=== PATIENT | female | born 1990 | race Hispanic/Latino ===

== ENCOUNTER 2017-12-26 19:00 | Emergency (ER) | payer SELFPAY ==
[2017-12-26 19:51] LABS: #Basophils 0.1 thou/uL (0.0-0.2); #Eosinphils 0.2 thou/uL (0.0-0.7); #Lymphocytes 2.2 thou/uL (1.20-3.40); #Monocytes 0.4 thou/uL (0.11-0.59); #Neutrophils 7.1 thou/uL (1.40-6.50); %Basophils 0.6 % (0.0-1.0); %Eosinophils 1.7 % (0.0-10.0); %Lymphocytes 22.5 % (21.0-51.0); %Monocytes 4.3 % (0.0-10.0); %Neutrophils 70.9 % (42.0-75.0); Hemoglobin 11.3 g/dL (12.0-16.0); Mean Corpuscular HGB CONC 32.5 g/dL (32.0-36.0); Mean Corpuscular Hemoglobin 26.9 pg (27.0-31.0); Mean Corpuscular Volume 82.6 fl (81.0-99.0); Mean Platelet Volume 9.7 fL (7.4-10.4); Platelet Count 187 thou/uL (130-400); RBC Distribution Width 12.6 % (11.5-14.5); Red Blood Cell (RBC) Count 4.19 mill/uL (4.20-5.40); White Blood Cell (WBC) Count 9.9 thou/uL (4.8-10.8)
[2017-12-26 20:19] LABS: Bilirubin Negative (Negative); Blood, Urine Negative (Negative); Clarity Slightly Cloudy (Clear); Glucose, Urine (Dipstick) Negative (Negative); Leukocyte Trace (Negative); Nitrite Negative (Negative); Protein, Urine (Dipstick) Trace mg/dL (Neg-Trace); Specific Gravity, Urine 1.015 (1.005-1.030); pH, Urine 8.5 (5.0-9.0)
[2017-12-26 20:21] LABS: Pregnancy Test - Urine (BHCG) Negative (Negative)
[2017-12-26 20:22] LABS: Pregu Control Background? CLEAR/WHITE (CLR/WHITE); Pregu Control Bar Appear? YES (CONTROL BAR); Specific Gravity 1.015 (1.002-1.036)
[2017-12-26 20:24] LABS: Bacteria/HPF 2+ HPF (None Seen); RBC/HPF 0-3 HPF (0-3); Squamous Epithelial 0-3 HPF (0-3)
== END 2017-12-26 20:32 | disposition home or self-care (01) ==
LOC: SCSER 19:00
DX: B34.9 Viral infection, unspecified (principal); R55 Syncope and collapse
CPT/HCPCS: 36415; 81003; 81015; 81025; 85025; 87804; 99284

== ENCOUNTER 2022-07-20 10:25 | Outpatient (CLI) | payer OTHER | END 2022-07-20 10:26 | disposition home or self-care (01) | LOC: DTY/OP 10:25 | PROVIDERS: ATTEND Specialist | DX: E66.01 Morbid (severe) obesity due to excess calories (principal) | CPT/HCPCS: 97802 ==

== ENCOUNTER 2022-08-30 09:50 | Outpatient (CLI) | payer OTHER | END 2022-08-30 09:51 | disposition home or self-care (01) | LOC: DTY/OP 09:50 | PROVIDERS: ATTEND Specialist | DX: E66.01 Morbid (severe) obesity due to excess calories (principal) | CPT/HCPCS: 97802 ==

== ENCOUNTER 2022-09-28 09:17 | Outpatient (CLI) | payer OTHER | END 2022-09-28 09:18 | disposition home or self-care (01) | LOC: DTY/OP 09:17 | PROVIDERS: ATTEND Specialist | DX: E66.01 Morbid (severe) obesity due to excess calories (principal) | CPT/HCPCS: 97802 ==

== ENCOUNTER 2022-11-23 10:04 | Outpatient (CLI) | payer OTHER | END 2022-11-23 10:05 | disposition home or self-care (01) | LOC: DTY/OP 10:04 | PROVIDERS: ATTEND Specialist | DX: E66.01 Morbid (severe) obesity due to excess calories (principal) | CPT/HCPCS: 97802 ==

== ENCOUNTER 2022-12-21 09:48 | Outpatient (CLI) | payer OTHER | END 2022-12-21 09:49 | disposition home or self-care (01) | LOC: DTY/OP 09:48 | PROVIDERS: ATTEND Specialist | DX: E66.01 Morbid (severe) obesity due to excess calories (principal) | CPT/HCPCS: 97802 ==

== ENCOUNTER 2023-02-08 10:22 | Outpatient (CLI) | payer OTHER | END 2023-02-08 10:23 | disposition home or self-care (01) | LOC: DTY/OP 10:22 | PROVIDERS: ATTEND Specialist | DX: E66.01 Morbid (severe) obesity due to excess calories (principal) | CPT/HCPCS: 97802 ==

== ENCOUNTER 2023-02-21 09:15 | Inpatient (IN) | payer OTHER ==
[2023-02-28] MEDS ORDERED: Acetaminophen 500 MG TAB ONE (09:13)
[2023-02-28] MEDS ORDERED: Ketorolac Tromethamine 30 MG/ML VIAL ONE (09:13)
[2023-02-28] MEDS ORDERED: Scopolamine 1.5 mg/72 hour Patch ONE (09:13)
[2023-02-28] MEDS ORDERED: Heparin 5,000 UNITS/ML VIAL ONE (09:34)
[2023-02-28] MEDS ORDERED: Fentanyl 250 MCG/5 ML VIAL ONE (10:39)
[2023-02-28] MEDS ORDERED: Midazolam HCl 2 mg/2 ml Vial ONE (10:39)
[2023-02-28] MEDS ORDERED: Bupivacaine/Epinephrine 0.25% 30 ML VIAL ONE (10:45)
[2023-02-28] MEDS ORDERED: Sodium Chloride 0.9% 100 ML ONE (10:56)
[2023-02-28] MEDS ORDERED: CEFAZOLIN 2 GM VIAL ONE (10:56)
[2023-02-28] MEDS ORDERED: Dexamethasone 20 MG/5 ML VIAL ONE (11:02)
[2023-02-28] MEDS ORDERED: PROPOFOL 200 MG/20 ML VIAL ONE (11:02)
[2023-02-28] MEDS ORDERED: Rocuronium Bromide 10 MG/ML (10ML VIAL) ONE (11:02)
[2023-02-28] MEDS ORDERED: Lidocaine 1% PF 5 ML VIAL ONE (11:02)
[2023-02-28] MEDS ORDERED: Ondansetron PF 4 MG/2 ML Vial ONE ×2 (11:02→13:29)
[2023-02-28] MEDS ORDERED: HYDROmorphone 2 MG/ML VIAL SLOW IVP PRN (11:35)
[2023-02-28] MEDS ORDERED: Ondansetron HCl/PF 4 MG/2 ML Vial IVP PRN (11:35)
[2023-02-28] MEDS ORDERED: Promethazine HCl 25 MG/ML VIAL IM PRN ×2 (11:35→14:49)
[2023-02-28] MEDS ORDERED: HYDROmorphone 0.5 MG/0.5 ML SYRINGE ONE (11:49)
[2023-02-28] MEDS ORDERED: Promethazine HCl 25 MG/ML VIAL ONE (13:35)
[2023-02-28] MEDS ORDERED: fentaNYL 50 mcg/mL 1 mL Vial ONE ×3 (13:58→14:49)
[2023-02-28] MEDS ORDERED: Morphine 4 MG/ML VIAL SLOW IVP PRN (14:49)
[2023-02-28] MEDS ORDERED: Dextrose 50% Abboject 50 ML SYRINGE SLOW IVP PRN (14:49)
[2023-02-28] MEDS ORDERED: hydrALAZINE 20 MG/ML VIAL SLOW IVP PRN (14:49)
[2023-02-28] MEDS ORDERED: Morphine 2 MG/ML VIAL SLOW IVP PRN (14:49)
[2023-02-28] MEDS ORDERED: Dextrose 5% in Water 1,000 ML IV PRN (14:49)
[2023-02-28] MEDS ORDERED: diphenhydrAMINE 50 MG/ML VIAL IVP PRN (14:49)
[2023-02-28] MEDS ORDERED: Ipratropium Bromide 2.5 ml Neb NEB PRN (14:58)
[2023-02-28 15:46] VITALS: BMI 39.7
[2023-02-28] MEDS: D5 1/2 NS w/20 mEq KCL 1,000 ML IV SCH ×2 (16:40→20:02)
[2023-02-28] MEDS: Ketorolac Tromethamine 30 MG/ML VIAL IVP SCH ×2 (17:00→23:28)
[2023-02-28] MEDS: Ondansetron PF 4 MG/2 ML Vial IVP PRN (21:56)
[2023-03-01] MEDS: D5 1/2 NS w/20 mEq KCL 1,000 ML IV SCH ×2 (04:49→16:01)
[2023-03-01] MEDS: Ketorolac Tromethamine 30 MG/ML VIAL IVP SCH ×2 (04:51→12:40)
[2023-03-01] MEDS: Hydrocodone-Acetamin 15 ML UDCUP PO PRN ×2 (04:51→16:15)
[2023-03-01] MEDS: Ondansetron PF 4 MG/2 ML Vial IVP PRN (04:51)
[2023-03-01 07:24] LABS: #Basophils 0.1 thou/uL (0.0-0.2); #Lymphocytes 1.2 thou/uL (1.20-3.40); #Monocytes 1.1 thou/uL (0.11-0.59); #Neutrophils 11.7 thou/uL (1.40-6.50); %Basophils 0.7 % (0.0-1.0); %Eosinophils 0.3 % (0.0-10.0); %Lymphocytes 8.4 % (21.0-51.0); %Monocytes 7.7 % (0.0-10.0); %Neutrophils 82.9 % (42.0-75.0); Hemoglobin 12.1 g/dL (12.0-16.0); Mean Corpuscular HGB CONC 32.9 g/dL (32.0-36.0); Mean Corpuscular Volume 81.9 fl (78.0-98.0); Mean Platelet Volume 10.2 fL (7.4-10.4); Platelet Count 211 10x3/uL (130-400); RBC Distribution Width 13.7 % (11.5-14.5); Red Blood Cell (RBC) Count 4.49 mill/uL (4.20-5.40); White Blood Cell (WBC) Count 14.1 10x3/uL (4.8-10.8)
[2023-03-01 07:49] LABS: Anion Gap 16 mmol/L (10-20); BUN (Urea Nitrogen) 6 mg/dL (7.0-18.7); Calc. Creatinine Clearance 222 mL/min (70-130); Calcium 8.9 mg/dL (7.8-10.44); Carbon Dioxide 20 mmol/L (22-29); Chloride 105 mmol/L (98-107); Estimated GFR 119; Glucose 114 mg/dL (70-105); Potassium 4.2 mmol/L (3.5-5.1); Sodium 137 mmol/L (136-145)
[2023-03-01] MEDS ORDERED: Pantoprazole 40 MG VIAL IVP SCH (09:00)
[2023-03-01 15:40] VITALS: BP 147/89; TEMP 97.2
== END 2023-03-01 16:35 | disposition home or self-care (01) | DRG 621 ==
LOC: SURG A 02-28 08:39
PROVIDERS: ADMIT Specialist; ATTEND Specialist
PROC: 0DB64Z3 Excision of Stomach, Percutaneous Endoscopic Approach, Vertical (ICD-10-PCS; principal; 2023-02-28)
DX: E66.01 Morbid (severe) obesity due to excess calories (principal); Z68.39 Body mass index [BMI] 39.0-39.9, adult; Z79.899 Other long term (current) drug therapy
CPT/HCPCS: 36415; 80048; 85025; 88307; 88342; A4649; C9113; J0360; J1100; J1170; J1644; J1650; J1885; J2250; J2272; J2405; J2550; J2704; J3010; J3480; J3490

== ENCOUNTER 2023-02-21 09:34 | Outpatient (CLI) | payer OTHER ==
[2023-02-21 12:49] LABS: #Eosinphils 0.1 10x3/uL (0.0-0.5); #Monocytes 0.3 10x3/uL (0.0-1.1); #Neutrophils 3.4 10x3/uL (1.5-8.4); %Basophils 0.7 % (0.0-2.0); %Eosinophils 2.2 % (0.0-6.0); %Lymphocytes 27.2 % (18.0-47.0); %Monocytes 5.8 % (0.0-10.0); %Neutrophils 64.1 % (40.0-75.0); Hemoglobin 11.1 g/dL (12.0-15.5); Mean Corpuscular HGB CONC 30.2 g/dL (32.0-36.0); Mean Corpuscular Hemoglobin 24.6 pg (27.0-33.0); Mean Corpuscular Volume 81.4 fl (81.6-98.3); Mean Platelet Volume 12.2 fl (7.4-10.4); Platelet Count 242 10x3/uL (150-450); RBC Distribution Width 14.7 % (11.5-14.5); Red Blood Cell (RBC) Count 4.51 10x6/uL (3.90-5.03); White Blood Cell (WBC) Count 5.3 10x3/uL (3.5-10.5)
[2023-02-21 13:06] LABS: BHCG - Serum Negative (NEGATIVE); Pregs Control Background? CLEAR/WHITE (CLR/WHITE); Pregs Control Bar Appear? YES (CONTROL BAR)
[2023-02-21 13:36] LABS: ALT (SGPT) 30 U/L (8-55); AST (SGOT) 26 U/L (5-34); Albumin 4.1 g/dL (3.5-5.0); Alkaline Phosphatase 65 U/L (40-110); Anion Gap 14 mmol/L (10-20); BUN (Urea Nitrogen) 11 mg/dL (7.0-18.7); Bilirubin, Total 0.3 mg/dL (0.2-1.2); Calc. Creatinine Clearance 0 mL/min (70-130); Calcium 9.1 mg/dL (7.8-10.44); Carbon Dioxide 22 mmol/L (22-29); Chloride 108 mmol/L (98-107); Estimated GFR 118; Globulin 2.8 g/dL (2.4-3.5); Glucose 86 mg/dL (70-105); Potassium 4.3 mmol/L (3.5-5.1); Protein, Total 6.9 g/dL (6.0-8.3); Sodium 140 mmol/L (136-145)
[2023-02-21 14:29] LABS: Hemoglobin A1c 4.9 % (4.0-6.0)
== END 2023-02-21 09:35 | disposition home or self-care (01) ==
LOC: LABBT 09:34
PROVIDERS: ATTEND Specialist
DX: Z01.812 Encounter for preprocedural laboratory examination (principal); E66.01 Morbid (severe) obesity due to excess calories
CPT/HCPCS: 80053; 83036; 84703; 85025

== ENCOUNTER 2024-01-22 03:22 | Inpatient (IN) | payer BC ==
[2024-01-22 04:10] LABS: #Eosinphils 0.1 thou/uL (0.0-0.7); #Monocytes 0.5 thou/uL (0.11-0.59); #Neutrophils 7.8 thou/uL (1.40-6.50); %Basophils 0.3 % (0.0-1.0); %Eosinophils 0.5 % (0.0-10.0); %Lymphocytes 8.1 % (21.0-51.0); %Monocytes 5.7 % (0.0-10.0); %Neutrophils 85.3 % (42.0-75.0); Hematocrit 37.6 % (36.0-47.0); Hemoglobin 11.5 g/dL (12.0-16.0); Mean Corpuscular HGB CONC 30.6 g/dL (32.0-36.0); Mean Corpuscular Hemoglobin 23.7 pg (27.0-31.0); Mean Corpuscular Volume 77.5 fl (78.0-98.0); Mean Platelet Volume 11.9 fL (7.4-10.4); Platelet Count 198 10x3/uL (130-400); RBC Distribution Width 13.4 % (11.5-14.5); Red Blood Cell (RBC) Count 4.85 mill/uL (4.20-5.40); White Blood Cell (WBC) Count 9.1 10x3/uL (4.8-10.8)
[2024-01-22] MEDS ORDERED: Morphine 4 MG/ML VIAL ONE (04:11)
[2024-01-22] MEDS ORDERED: Ondansetron PF 4 MG/2 ML Vial ONE ×2 (04:11→13:47)
[2024-01-22 04:20] LABS: BHCG - Serum Negative (NEGATIVE); Pregs Control Background? CLEAR/WHITE (CLR/WHITE); Pregs Control Bar Appear? YES (CONTROL BAR)
[2024-01-22 04:25] LABS: ALT (SGPT) 185 U/L (8-55); AST (SGOT) 357 U/L (5-34); Albumin 4.2 g/dL (3.5-5.0); Alkaline Phosphatase 80 U/L (40-110); Anion Gap 16 mmol/L (10-20); BUN (Urea Nitrogen) 11 mg/dL (7.0-18.7); Bilirubin, Total 2.2 mg/dL (0.2-1.2); Calc. Creatinine Clearance 0 mL/min (70-130); Calcium 9.5 mg/dL (7.8-10.44); Carbon Dioxide 23 mmol/L (22-29); Chloride 105 mmol/L (98-107); Estimated GFR 94; Globulin 3.1 g/dL (2.4-3.5); Glucose 107 mg/dL (70-105); Potassium 3.9 mmol/L (3.5-5.1); Protein, Total 7.3 g/dL (6.0-8.3); Sodium 140 mmol/L (136-145)
[2024-01-22 04:39] LABS: Lipase 5912 U/L (8-78)
[2024-01-22 07:38] VITALS: BMI 26.6
[2024-01-22] MEDS: Morphine 2 MG/ML VIAL SLOW IVP PRN (08:55)
[2024-01-22] MEDS: Ondansetron PF 4 MG/2 ML Vial IVP PRN (08:57)
[2024-01-22] MEDS: Sodium Chloride 0.9% 1,000 ML IV SCH ×3 (09:02→14:15)
[2024-01-22] MEDS ORDERED: Sodium Chloride 0.9% 100 ML ONE (13:09)
[2024-01-22] MEDS ORDERED: cefOXitin 2 GM VIAL ONE (13:09)
[2024-01-22] MEDS ORDERED: Bupivacaine 0.25% HCL 30 ML VIAL ONE (13:35)
[2024-01-22] MEDS ORDERED: EPINEPHrine 1 MG/ML VIAL ONE (13:35)
[2024-01-22] MEDS ORDERED: Iopamidol 15 ML ONE (13:36)
[2024-01-22] MEDS ORDERED: HYDROmorphone 0.5 MG/0.5 ML SYRINGE ONE (13:38)
[2024-01-22] MEDS ORDERED: PROPOFOL 20 ML ONE (13:47)
[2024-01-22] MEDS ORDERED: Lidocaine 2% PF 5 ML VIAL ONE (13:47)
[2024-01-22] MEDS ORDERED: fentaNYL 50 mcg/mL 1 mL Vial ONE ×2 (13:47→14:39)
[2024-01-22] MEDS ORDERED: SUCCINYLCHOLINE/SOD CL,ISO/PF 200 MG/10 ML SYRINGE FS ONE ×2 (13:51→13:53)
[2024-01-22] MEDS ORDERED: SUGAMMADEX SODIUM 200 MG/2 ML VIAL ONE (13:52)
[2024-01-22] MEDS ORDERED: Dexamethasone 20 MG/5 ML VIAL ONE (14:01)
[2024-01-22] MEDS ORDERED: Rocuronium Bromide 10 MG/ML (10ML VIAL) ONE (14:01)
[2024-01-22] MEDS ORDERED: Ketorolac Tromethamine 30 MG (1 mL) VIAL ONE (14:08)
[2024-01-22] MEDS ORDERED: Esmolol 100 MG/10 ML VIAL ONE (14:11)
[2024-01-22] MEDS ORDERED: HYDROmorphone 2 MG/ML VIAL SLOW IVP PRN (15:15)
[2024-01-22] MEDS ORDERED: Ondansetron HCl/PF 4 MG/2 ML Vial IVP PRN (15:15)
[2024-01-22] MEDS ORDERED: PACU-Morphine 4MG/ML VIAL SLOW IVP PRN (15:15)
[2024-01-22] MEDS ORDERED: Promethazine HCl 25 MG/ML VIAL IM PRN (15:15)
[2024-01-22] MEDS ORDERED: Morphine Sulfate 2 MG/ML SYRINGE SLOW IVP PRN (15:15)
[2024-01-23 06:24] LABS: #Monocytes 0.6 thou/uL (0.11-0.59); #Neutrophils 9.5 thou/uL (1.40-6.50); %Basophils 0.2 % (0.0-1.0); %Eosinophils 0.3 % (0.0-10.0); %Lymphocytes 11.5 % (21.0-51.0); %Monocytes 5.6 % (0.0-10.0); %Neutrophils 82.1 % (42.0-75.0); Hemoglobin 9.2 g/dL (12.0-16.0); Mean Corpuscular HGB CONC 30.7 g/dL (32.0-36.0); Mean Corpuscular Hemoglobin 23.1 pg (27.0-31.0); Mean Corpuscular Volume 75.2 fl (78.0-98.0); Mean Platelet Volume 11.9 fL (7.4-10.4); Platelet Count 187 10x3/uL (130-400); RBC Distribution Width 13.7 % (11.5-14.5); Red Blood Cell (RBC) Count 3.99 mill/uL (4.20-5.40); White Blood Cell (WBC) Count 11.5 10x3/uL (4.8-10.8)
[2024-01-23 06:51] LABS: ALT (SGPT) 90 U/L (8-55); AST (SGOT) 77 U/L (5-34); Albumin 3.2 g/dL (3.5-5.0); Alkaline Phosphatase 62 U/L (40-110); Anion Gap 12 mmol/L (10-20); BUN (Urea Nitrogen) 10 mg/dL (7.0-18.7); Calc. Creatinine Clearance 162 mL/min (70-130); Calcium 8.4 mg/dL (7.8-10.44); Carbon Dioxide 22 mmol/L (22-29); Chloride 106 mmol/L (98-107); Estimated GFR 121; Globulin 2.5 g/dL (2.4-3.5); Glucose 87 mg/dL (70-105); Protein, Total 5.7 g/dL (6.0-8.3); Sodium 136 mmol/L (136-145)
[2024-01-23 07:04] LABS: Lipase 1269 U/L (8-78)
[2024-01-23] MEDS ORDERED: traMADol HCl 50 MG TAB PO PRN ×2 (07:32→11:33)
[2024-01-23] MEDS ORDERED: Ibuprofen 600 MG TAB PO PRN (07:32)
[2024-01-23] MEDS: Acetaminophen 500 MG TAB PO SCH (08:44)
[2024-01-23] MEDS: traMADol HCl 50 MG TAB PO SCH (12:44)
[2024-01-23 13:03] VITALS: BP 135/83; TEMP 98
[2024-01-23] MEDS ORDERED: Acetaminophen 500 MG TAB PO PRN (14:45)
== END 2024-01-23 14:28 | disposition home or self-care (01) | DRG 419 ==
LOC: ERS 03:22 → T4-A 06:48
PROVIDERS: ADMIT Student in an Organized Health Care Education/Training Program; ATTEND Internal Medicine
PROC: 0FT44ZZ Resection of Gallbladder, Percutaneous Endoscopic Approach (ICD-10-PCS; principal; 2024-01-22)
PROC: BF131ZZ Fluoroscopy of Gallbladder and Bile Ducts using Low Osmolar Contrast (ICD-10-PCS; 2024-01-22)
DX: K85.10 Biliary acute pancreatitis without necrosis or infection (principal); Z98.890 Other specified postprocedural states; D50.9 Iron deficiency anemia, unspecified; K80.20 Calculus of gallbladder without cholecystitis without obstruction
CPT/HCPCS: 36415; 47532; 74176; 74181; 76705; 80053; 81001; 81025; 83690; 84703; 85025; 88304; 96374; 96375; C1713; J0171; J0665; J0694; J1100; J1170; J1885; J2001; J2270; J2272; J2405; J2704; J3010; J3490; J7050; Q9967